=== PATIENT | male | born 1985 | race Caucasian/White ===

== ENCOUNTER 2022-12-23 05:41 | Inpatient (IN) | payer MEDICAID ==
[2022-12-23] MEDS ORDERED: cefOXitin 2 GM in Sodium Chloride 0.9% 50 ML IV ONE (05:45)
[2022-12-23] MEDS ORDERED: Celecoxib 200 MG Cap PO ONE (05:45)
[2022-12-23] MEDS ORDERED: Scopolamine 1.5 MG Transdermal Patch TOP SCH (05:45)
[2022-12-23] MEDS ORDERED: Acetaminophen 500 MG Tab PO ONE (05:45)
[2022-12-23] MEDS ORDERED: Dextrose 5%-Lactated Ringers 1,000 ML IV SCH (05:45)
[2022-12-23] MEDS ORDERED: cefOXitin 2 GM Vial ONE (06:59)
[2022-12-23] MEDS ORDERED: fentaNYL 250 MCG/5 ML SDV ONE ×2 (07:13→07:58)
[2022-12-23] MEDS ORDERED: Propofol 200 MG/20 ML SDV ONE (07:14)
[2022-12-23] MEDS ORDERED: Rocuronium 50 MG/5 ML Vial ONE ×2 (07:14→08:08)
[2022-12-23] MEDS ORDERED: Glycopyrrolate 0.2 MG/ML 5 ML MDV ONE (07:14)
[2022-12-23] MEDS ORDERED: Succinylcholine 200 MG/10 ML MDV ONE (07:14)
[2022-12-23] MEDS ORDERED: Neostigmine Methylsulfate 1 MG/ML 5 ML Syringe ONE (07:14)
[2022-12-23] MEDS ORDERED: Dexamethasone 4 MG/ML SDV ONE (07:14)
[2022-12-23] MEDS ORDERED: Ondansetron 4 MG/2 ML SDV ONE (07:14)
[2022-12-23 07:19] LABS: HEMOGLOBIN A1C 5.6 % (4.5-6.2)
[2022-12-23] MEDS ORDERED: Ketamine 500 MG/5 ML MDV IV SCH (07:30)
[2022-12-23] MEDS ORDERED: Ketamine 21 MG in Sodium Chloride 0.9% 19.79 ML IV SCH (07:30)
[2022-12-23 07:32] LABS: ESTIMATED GFR 101 mL/min (>60)
[2022-12-23] MEDS ORDERED: Lactated Ringers 1,000 ML ONE (08:27)
[2022-12-23] MEDS ORDERED: Labetalol 20 MG/4 ML Syringe ONE (08:27)
[2022-12-23] MEDS ORDERED: cefOXitin 2 GM Vial IRR ONE ×2 (08:32→10:00)
[2022-12-23] MEDS ORDERED: hydrALAZINE 20 MG/ML SDV ONE (09:18)
[2022-12-23] MEDS ORDERED: fentaNYL 100 MCG/2 ML SDV ONE (09:23)
[2022-12-23] MEDS ORDERED: fentaNYL 50 MCG/ML SDV IVPUSH ONE (10:26)
[2022-12-23] MEDS ORDERED: hydrOXYzine HCL 100 MG/2 ML SDV IM ONE (10:26)
[2022-12-23] MEDS ORDERED: Ondansetron 4 MG/2 ML SDV IVPUSH ONE (10:28)
[2022-12-23] MEDS ORDERED: Cyclobenzaprine 10 MG Tab PO PRN (11:32)
[2022-12-23] MEDS: HYDROmorphone 1 MG/ML Syringe IV PRN (11:50)
[2022-12-23] MEDS: Dextrose 5%-Lactated Ringers 1,000 ML IV SCH ×2 (11:54→22:07)
[2022-12-23] MEDS ORDERED: Acetaminophen 500 MG Tab PO PRN (12:00)
[2022-12-23] MEDS ORDERED: Pantoprazole 40 MG Vial IVPUSH SCH (12:00)
[2022-12-23] MEDS ORDERED: Labetalol 20 MG/4 ML Syringe IVPUSH PRN (12:00)
[2022-12-23] MEDS ORDERED: Ondansetron 4 MG/2 ML SDV IVPUSH PRN (12:00)
[2022-12-23] MEDS ORDERED: oxyCODONE 5 MG Tab PO PRN (12:00)
[2022-12-23] MEDS ORDERED: HYDROmorphone 0.5 MG/0.5 ML Syringe IVPUSH PRN (12:00)
[2022-12-23] MEDS ORDERED: hydrOXYzine HCL 100 MG/2 ML SDV IM PRN (12:00)
[2022-12-23] MEDS ORDERED: diphenhydrAMINE 50 MG/ML SDV IVPUSH PRN (12:00)
[2022-12-23] MEDS: amLODIPine 5 MG Tab PO SCH (12:50)
[2022-12-23] MEDS: Metoclopramide 10 MG/2 ML SDV IVPUSH PRN (13:13)
[2022-12-23] MEDS: cefOXitin 2 GM in Sodium Chloride 0.9% 50 ML IV SCH ×2 (15:01→20:57)
[2022-12-23] MEDS: Acetaminophen 500 MG Tab PO SCH ×2 (15:05→22:08)
[2022-12-23] MEDS: traMADol 50 MG Tab PO PRN (15:12)
[2022-12-23] MEDS ORDERED: MVI, Adult with Vitamin K 10 ML, Thiamine 200 MG, Zinc/Copper/Manganese/Selenium 1 ML i... IV SCH ×4 (16:00)
[2022-12-23] MEDS: Heparin Sodium 5,000 Units/ML Vial SUBCUT SCH (17:16)
[2022-12-23] MEDS ORDERED: Benzocaine/Cetylpyridinium/Menthol Lozenge MUCMEM PRN (17:23)
[2022-12-24] MEDS ORDERED: Iopamidol 612 MG/ML 30 ML SDV PO STA (02:26)
[2022-12-24] MEDS: cefOXitin 2 GM in Sodium Chloride 0.9% 50 ML IV SCH ×4 (02:31→19:13)
[2022-12-24] MEDS: HYDROmorphone 1 MG/ML Syringe IV PRN (03:09)
[2022-12-24] MEDS: Dextrose 5%-Lactated Ringers 1,000 ML IV SCH (04:28)
[2022-12-24] MEDS: Heparin Sodium 5,000 Units/ML Vial SUBCUT SCH ×2 (06:00→20:05)
[2022-12-24] MEDS: Acetaminophen 500 MG Tab PO SCH ×3 (06:00→21:05)
[2022-12-24] MEDS: traMADol 50 MG Tab PO PRN ×2 (06:04→18:10)
[2022-12-24] MEDS ORDERED: Ondansetron 4 MG Tab.DIS PO PRN (08:24)
[2022-12-24] MEDS ORDERED: Dextrose 5%-Lactated Ringers 1,000 ML IV SCH (08:30)
[2022-12-24] MEDS: Celecoxib 200 MG Cap PO SCH ×2 (08:58→21:05)
[2022-12-24] MEDS: amLODIPine 5 MG Tab PO SCH (08:59)
[2022-12-24] MEDS: SCOPOLAMINE PATCH CHECK TOP SCH (08:59)
[2022-12-24] MEDS: hydrOXYzine HCl 25 MG Tab PO PRN ×3 (09:00→21:05)
[2022-12-24] MEDS: Docusate Sodium 100 MG Cap PO SCH ×2 (09:04→21:05)
[2022-12-24] MEDS: Bisacodyl 5 MG Tab PO SCH ×2 (09:04→21:05)
[2022-12-24] MEDS: Lisinopril 20 MG Tab PO SCH (12:17)
[2022-12-24] MEDS ORDERED: MVI, Adult with Vitamin K 10 ML, Thiamine 200 MG, Zinc/Copper/Manganese/Selenium 1 ML i... IV SCH ×4 (16:00)
[2022-12-24] MEDS ORDERED: Pantoprazole 40 MG Delayed-Release Granules 1 Packet PO SCH (16:30)
[2022-12-24] MEDS: Metoclopramide 10 MG/2 ML SDV IVPUSH PRN (18:09)
[2022-12-25] MEDS: traMADol 50 MG Tab PO PRN ×2 (01:44→08:57)
[2022-12-25] MEDS: Heparin Sodium 5,000 Units/ML Vial SUBCUT SCH (06:30)
[2022-12-25] MEDS: Acetaminophen 500 MG Tab PO SCH (06:31)
[2022-12-25] MEDS: Celecoxib 200 MG Cap PO SCH (08:54)
[2022-12-25] MEDS: amLODIPine 5 MG Tab PO SCH (08:54)
[2022-12-25] MEDS: Lisinopril 20 MG Tab PO SCH (08:54)
[2022-12-25] MEDS: Docusate Sodium 100 MG Cap PO SCH (08:54)
[2022-12-25] MEDS: Bisacodyl 5 MG Tab PO SCH (08:54)
[2022-12-25] MEDS ORDERED: Cyanocobalamin (Vitamin B12) 1,000 MCG/ML SDV IM ONE (09:00)
[2022-12-25] MEDS ORDERED: Magnesium Hydroxide 400 MG/5 ML Susp 30 ML Cup PO ONE (09:00)
[2022-12-25] MEDS: SCOPOLAMINE PATCH CHECK TOP SCH (11:22)
== END 2022-12-25 11:25 | disposition home or self-care (01) | DRG 621 ==
LOC: JP.SDSSCHI 05:41 → JP.MS 11:14
PROVIDERS: ADMIT Surgery; ATTEND Surgery
PROC: 0DB64Z3 Excision of Stomach, Percutaneous Endoscopic Approach, Vertical (ICD-10-PCS; principal; 2022-12-23)
PROC: 8E0W4CZ Robotic Assisted Procedure of Trunk Region, Percutaneous Endoscopic Approach (ICD-10-PCS; 2022-12-23)
DX: E66.01 Morbid (severe) obesity due to excess calories (principal); I10 Essential (primary) hypertension; Z90.49 Acquired absence of other specified parts of digestive tract; Z68.42 Body mass index [BMI] 45.0-49.9, adult; Z79.899 Other long term (current) drug therapy
CPT/HCPCS: 36415; 74240; 74240-26; 80053; 83036; 83735; 83880; 84100; 85027; 86850; 86900; 86901; 88307; 93005; A9270-GY; C9113; J0171; J0330; J0360; J0694; J1100; J1170; J1644; J2405; J2704; J2710; J2765; J2795; J3010; J3410; J3411; J3420; J3490; J7120; J7121; Q9967